=== PATIENT | male | born 1955 | race Two or more races ===

== ENCOUNTER 2023-02-09 09:31 | Emergency (ER) | payer OTHER ==
[~2023-02-09] VITALS: Ht 170.2 cm; Wt 72.6 kg
[~2023-02-09 09:31] MED LIST: ADULT LOW DOSE81 M1 PO; CIPRO PO; GABAPENTIN400 MG; HORIZANT300 MG PO; METOPROLOL TART50 MG; MONTELUKAST SOD10 MG; RESTORIL30 MG; TAMSULOSIN HCL0.4 MG; TOPROL XL50 M1 PO; ZESTRIL20 MG PO
[2023-02-09] MEDS ORDERED: HYOSCYAMINE0.125 M1 (09:44)
[2023-02-09 11:10] LABS: HEMATOCRIT 43.1 % (39.0-48.0); HEMOGLOBIN 14.8 g/dL (13-16.00); MEAN CELL VOLUME 90.1 fL (80.0-100.00); MEAN CORPUSCULAR HEMOGLOBIN 31.1 pg (27.00-32.0); MEAN CORPUSCULAR HGB CONC 34.5 g/dl (32.0-36.0); PLATELET COUNT 212 K/uL (150-450); RED BLOOD COUNT 4.78 M/uL (4.00-6.00); RED CELL DISTRIBUTION WIDTH 14.2 % (11.5-14.5)
[2023-02-09 12:07] LABS: ALBUMIN 3.5 gm/dL (3.4-5.0); BILIRUBIN TOTAL 0.82 mg/dL (0.3-1.2); CALCIUM 8.9 mg/dL (8.5-10.1); CREATININE SERUM 0.87 mg/dL (0.70-1.30); GFR 87.52; GLOBULINA 2.9 G/DL (2.4-3.5); POTASSIUM 3.81 mEq/L (3.5-5.1); TOTAL PROTEIN 6.4 gm/dL (6.4-8.2)
[2023-02-09 13:12] LABS: URINE APPEARANCE Cloudy; URINE BILIRRUBIN Small (NEGATIVE); URINE BLOOD Moderate; URINE COLOR Dark Yellow; URINE GLUCOSE Negative (NEGATIVE); URINE LEUKOCYTE Negative; URINE NITRATE Negative; URINE PROTEIN 30 (NEGATIVE); URINE UROBILINOGEN 0.2 E.U./dl
[2023-02-09 13:20] LABS: URINE BACTERIA 21.4 uL (0.0-1933); URINE EPITHELIAL CELLS 24.2 uL (0.0-38.8); URINE RBC 48.4 uL (0.0-20.8); URINE WBC 10.8 uL (0.0-23.2)
[2023-02-09 13:48] LABS: URINE CRYSTALS MODERATE /HPF
[2023-02-09 13:49] LABS: URINE MUCUS HEAVY
== END 2023-02-09 14:19 | disposition home or self-care (01) ==
LOC: ER 09:31
PROVIDERS: Emergency Medicine
DX: G25.2 Other specified forms of tremor (principal); Z91.041 Radiographic dye allergy status; Z91.013 Allergy to seafood; I10 Essential (primary) hypertension
CPT/HCPCS: 36415; 70450; 96365; 99284; J1200; J3490

== ENCOUNTER 2023-02-11 09:19 | Emergency (ER) | payer OTHER ==
[~2023-02-11] VITALS: Ht 170.2 cm; Wt 72.6 kg
[~2023-02-11 09:19] MED LIST changes: +HYOSCYAMINE0.125 M1
== END 2023-02-11 15:42 | disposition home or self-care (01) ==
LOC: ER 09:19
DX: K59.00 Constipation, unspecified (principal); F41.9 Anxiety disorder, unspecified; I10 Essential (primary) hypertension; Z91.013 Allergy to seafood; Z91.041 Radiographic dye allergy status
CPT/HCPCS: 74177; 96372; 99284; J3490; Q9965

== ENCOUNTER 2023-02-14 09:47 | Emergency (ER) | payer OTHER ==
[~2023-02-14] VITALS: Ht 170.2 cm; Wt 72.6 kg
[2023-02-14 11:54] LABS: HEMATOCRIT 50.6 % (39.0-48.0); MEAN CELL VOLUME 91.4 fL (80.0-100.00); MEAN CORPUSCULAR HEMOGLOBIN 30.7 pg (27.00-32.0); MEAN CORPUSCULAR HGB CONC 33.6 g/dl (32.0-36.0); PLATELET COUNT 227 K/uL (150-450); RED BLOOD COUNT 5.53 M/uL (4.00-6.00); RED CELL DISTRIBUTION WIDTH 13.9 % (11.5-14.5)
[2023-02-14 11:56] LABS: URINE APPEARANCE Clear; URINE BILIRRUBIN Negative (NEGATIVE); URINE BLOOD Small; URINE COLOR Dark Yellow; URINE GLUCOSE Negative (NEGATIVE); URINE LEUKOCYTE Negative; URINE NITRATE Negative; URINE PROTEIN Trace (NEGATIVE)
[2023-02-14 11:57] LABS: URINE BACTERIA 15.1 uL (0.0-1933); URINE RBC 24.7 uL (0.0-20.8); URINE WBC 12.2 uL (0.0-23.2)
[2023-02-14 12:12] LABS: URINE MUCUS HEAVY
[2023-02-14 12:12] LABS: BILIRUBIN TOTAL 0.84 mg/dL (0.3-1.2); CALCIUM 9.3 mg/dL (8.5-10.1); CREATININE SERUM 0.9 mg/dL (0.70-1.30); GFR 84.17; GLOBULINA 3.2 G/DL (2.4-3.5); POTASSIUM 3.88 mEq/L (3.5-5.1); TOTAL PROTEIN 7.2 gm/dL (6.4-8.2)
[2023-02-14 15:17] LABS: INR 1.09; PARTIAL THROMBOPLASTIN TIME 27.1 SECONDS (22.0-34.0); PROTHROMBIN TIME 11.4 SECONDS (9.0-11.5)
[2023-02-15] MEDS ORDERED: TAMS0.4C PO (13:24)
[2023-02-15] MEDS ORDERED: ZESTRIL40 M1 PO (13:25)
[2023-02-15] MEDS ORDERED: TOPROL XL50 M1 PO (13:25)
== END 2023-02-14 17:32 | disposition home or self-care (01) ==
LOC: ER 09:47
PROVIDERS: General Practice
DX: F13.939 Sedative, hypnotic or anxiolytic use, unspecified with withdrawal, unspecified (principal); Z20.822 Contact with and (suspected) exposure to COVID-19; Z91.013 Allergy to seafood; Z91.041 Radiographic dye allergy status
CPT/HCPCS: 36415; 70450; 71250; 74240; 96365; 96366; 99284; J7030

== ENCOUNTER → 2023-02-15 | Emergency (ER) | payer OTHER ==
[~2023-02-15] VITALS: Ht 170.2 cm; Wt 72.6 kg
[~2023-02-15] MED LIST changes: +TAMS0.4C PO; +ZESTRIL40 M1 PO
== END | disposition left against medical advice (07) ==
LOC: ER 13:17
DX: R25.8 Other abnormal involuntary movements (principal)

== ENCOUNTER 2024-11-20 09:50 | Emergency (ER) | payer OTHER ==
[~2024-11-20] VITALS: Ht 172.7 cm; Wt 74.4 kg
[2024-11-20] MEDS ORDERED: FLAGYL I.V500 MG/100 PO (10:19)
[2024-11-20] MEDS ORDERED: ANALPRAM HC 2.530 GM RECTAL (10:35)
[2024-11-20] MEDS ORDERED: KETOROLAC TROMETHAMINE 60 MG VIAL IM ONE (10:45)
[2024-11-20 11:01] VITALS: BP 149/89; O2SAT 99
== END 2024-11-20 11:03 | disposition home or self-care (01) ==
LOC: ER 09:53
DX: K64.9 Unspecified hemorrhoids (principal); I10 Essential (primary) hypertension; Z91.013 Allergy to seafood; Z91.041 Radiographic dye allergy status
CPT/HCPCS: 93005; 96372; 99282; J1885

== ENCOUNTER 2024-11-27 09:00 | Day surgery (SDC) | payer OTHER ==
[~2024-11-27 09:00] MED LIST changes: +ANALPRAM HC 2.530 GM RECTAL; +FLAGYL I.V500 MG/100 PO
[2024-11-27] MEDS ORDERED: CEFTRIAXONE SODIUM 2,000 MG VIAL ONE (09:29)
[2024-11-27] MEDS ORDERED: METRONIDAZOLE/SODIUM CHLORIDE 500 MG/100 ML PIGGYBACK IV ONE (09:30)
[2024-11-27] MEDS ORDERED: BUPIVACAINE HCL/MPF 0.5% 30ML VIAL ONE (11:54)
[2024-11-27] MEDS ORDERED: POVIDONE-IODINE 118 ML BOTT TOP ONE (11:55)
[2024-11-27] MEDS ORDERED: DIBUCAINE 30 GM TUBE ONE (11:55)
[2024-11-27] MEDS ORDERED: HEMOSTATIC MATRIX 1 KIT KIT TOP ONE (11:55)
[2024-11-27] MEDS ORDERED: MORPHINE SULFATE 4 MG/ML VIAL IV ONE (14:30)
== END 2024-11-27 16:25 | disposition home or self-care (01) ==
LOC: CIR.AMB 09:00
PROVIDERS: ATTEND Colon & Rectal Surgery
DX: K64.2 Third degree hemorrhoids (principal); K64.4 Residual hemorrhoidal skin tags; Z91.041 Radiographic dye allergy status; Z91.013 Allergy to seafood